=== PATIENT | female | born 1940 | race Asian ===

== ENCOUNTER 2018-11-06 15:55 | Emergency (ER) | payer OTHER ==
[~2018-11-06] VITALS: Ht 160 cm; Wt 65.0 kg
[~2018-11-06 15:55] MED LIST: ALLO100T PO; AMLO5TAB66 PO; ESOM10SU PO; LOSA50TA64 PO; ROSU5TAB PO
[2018-11-06] MEDS ORDERED: ASPIRIN 81 MG CHEWABLE TABLET PO ONE (16:15)
[2018-11-06 16:43] LABS: BASOPHILS % (AUTO) 0.6 % (0.0-2.0); EOSINOPHILS % (AUTO) 3.6 % (1.0-6.0); HEMATOCRIT 35.9 % (36-46); HEMOGLOBIN 12.3 g/dL (12.0-16.0); LYMPHOCYTES # (AUTO) 1.3 K/uL (1.0-4.8); LYMPHOCYTES % (AUTO) 14.5 % (22.0-44.0); MEAN CORPUSCULAR HEMOGLOBIN 31.3 pg (26.0-34.0); MEAN CORPUSCULAR HGB CONC 34.3 G/dL (31.0-37.0); MEAN CORPUSCULAR VOLUME 91 fL (80-100); MONOCYTES # (AUTO) 0.6 K/uL (0.1-1.0); MONOCYTES % (AUTO) 6.3 % (2.0-9.0); NEUTROPHILS # (AUTO) 6.7 K/uL (1.8-7.7); PLATELET COUNT (AUTO) 240 K/uL (150-450); RED BLOOD CELL COUNT(AUTO) 3.93 MIL/uL (4.00-5.20); RED CELL DISTRIBUTION WIDTH 13.8 % (11.5-14.5)
[2018-11-06 16:53] LABS: CALCIUM, TOTAL 8.6 mg/dL (8.8-10.5); CREATININE 2.13 mg/dL (0.60-1.30); POTASSIUM 3.6 mmol/L (3.5-5.1)
[2018-11-06 17:18] LABS: ALBUMIN 3.2 g/dL (3.4-5.0); TOTAL PROTEIN, SERUM 6.8 g/dL (6.4-8.2)
[2018-11-06] MEDS ORDERED: SODIUM CHLORIDE 0.9% 1,000 ML IV ONE (17:45)
[2018-11-06] MEDS ORDERED: ONDANSETRON HCL 4 MG/2 ML VIAL IVP ONE (17:45)
[2018-11-06] MEDS ORDERED: MORPHINE SULFATE 4 MG/ML SYRINGE IVP ONE (17:45)
[2018-11-06 17:55] LABS: APPEARANCE,URINE CLEAR (CLEAR); BILIRUBIN,URINE NEGATIVE (NEGATIVE); GLUCOSE, URINE (UA) NEGATIVE (NEGATIVE); KETONES,URINE NEGATIVE (NEGATIVE); LEUKOCYTE ESTERASE ,URINE SMALL (NEGATIVE); NITRATE,URINE NEGATIVE (NEGATIVE); OCCULT BLOOD,URINE LARGE (NEGATIVE); PH,URINE 7.5 (5.0-8.0); PROTEIN,URINE SEE CONFIRM (NEGATIVE)
[2018-11-06 18:01] LABS: SULFOSALICYLIC ACID,URINE 4+ (Negative)
[2018-11-06 18:04] LABS: BACTERIA,URINE None Seen /HPF (None Seen); SQUAMOUS EPITHELIAL CELL,UR Moderate /LPF (None Seen)
[2018-11-06 21:19] VITALS: BP 134/72
== END 2018-11-06 21:20 | disposition home or self-care (01) ==
LOC: EMS 15:56
DX: R10.13 Epigastric pain (principal); I12.9 Hypertensive chronic kidney disease with stage 1 through stage 4 chronic kidney disease, or unspecified chronic kidney disease; N18.9 Chronic kidney disease, unspecified; R74.0 Nonspecific elevation of levels of transaminase and lactic acid dehydrogenase [LDH]; R31.9 Hematuria, unspecified; I10 Essential (primary) hypertension; E78.00 Pure hypercholesterolemia, unspecified; Z79.899 Other long term (current) drug therapy
CPT/HCPCS: 36415; 71045; 76700; 80053; 81001; 82550; 83690; 83880; 84484; 85025; 87086; 93005; 96374; 96375; 99285; J2270; J2405; J7030

== ENCOUNTER 2024-10-26 04:59 | Emergency (ER) | payer OTHER ==
[~2024-10-26] VITALS: Ht 157.5 cm; Wt 63.6 kg
[~2024-10-26 04:59] MED LIST changes: +LOSA-382 PO; -LOSA50TA64 PO
[2024-10-26 06:46] LABS: BASOPHILS % (AUTO) 0.8 % (0.0-2.0); EOSINOPHILS % (AUTO) 3.4 % (1.0-6.0); HEMATOCRIT 38.5 % (36-46); HEMOGLOBIN 13.2 g/dL (12.0-16.0); LYMPHOCYTES # (AUTO) 1.4 K/uL (1.0-4.8); MEAN CORPUSCULAR HEMOGLOBIN 31.5 pg (26.0-34.0); MEAN CORPUSCULAR HGB CONC 34.2 G/dL (31.0-37.0); MEAN CORPUSCULAR VOLUME 92 fL (80-100); MONOCYTES # (AUTO) 0.4 K/uL (0.1-1.0); MONOCYTES % (AUTO) 5.4 % (2.0-9.0); NEUTROPHILS # (AUTO) 5.1 K/uL (1.8-7.7); NEUTROPHILS % (AUTO) 71.4 % (40.0-70.0); PLATELET COUNT (AUTO) 236 K/uL (150-450); RED BLOOD CELL COUNT(AUTO) 4.18 MIL/uL (4.00-5.20); RED CELL DISTRIBUTION WIDTH 13.8 % (11.5-14.5); WHITE BLOOD COUNT (AUTO) 7.1 K/uL (4.5-11.0)
[2024-10-26 06:50] LABS: CALCIUM, TOTAL 9.4 mg/dL (8.8-10.5); CREATININE 2.47 mg/dL (0.60-1.30)
[2024-10-26 07:02] LABS: ALBUMIN 3.7 g/dL (3.4-5.0); BILIRUBIN,DIRECT 0.2 mg/dL (0.00-0.20); BILIRUBIN,TOTAL 0.6 mg/dL (0.1-1.0); TOTAL PROTEIN, SERUM 8.2 g/dL (6.4-8.2)
[2024-10-26 07:03] LABS: APPEARANCE,URINE CLEAR (CLEAR); BILIRUBIN,URINE NEGATIVE (NEGATIVE); COLOR,URINE COLORLESS (YELLOW); GLUCOSE, URINE (UA) NEGATIVE (NEGATIVE); KETONES,URINE NEGATIVE (NEGATIVE); LEUKOCYTE ESTERASE ,URINE LARGE (NEGATIVE); NITRATE,URINE NEGATIVE (NEGATIVE); OCCULT BLOOD,URINE SMALL (NEGATIVE); PH,URINE 6.5 (5.0-8.0); PROTEIN,URINE 300-600,SEE CONFIRM mg/dL (NEGATIVE); SPECIFIC GRAVITIY, URINE 1.011 (1.003-1.030); UROBILINOGEN,URINE <=1.0 mg/dL (<=1.0)
[2024-10-26 07:41] LABS: SULFOSALICYLIC ACID,URINE 3+ (Negative)
[2024-10-26 07:42] LABS: BACTERIA,URINE Few /HPF (None Seen); RBC,URINE None Seen /HPF (0-2); SQUAMOUS EPITHELIAL CELL,UR Few /LPF (None Seen)
[2024-10-26] MEDS: ACETAMINOPHEN 500 MG TABLET PO ONE (07:58)
[2024-10-26] MEDS: LIDOCAINE 5% TRANSDERMAL PATCH TD ONE (07:58)
[2024-10-26] MEDS: CYCLOBENZAPRINE HCL 10 MG TABLET PO ONE (07:58)
[2024-10-26 10:47] VITALS: TEMP 98.6
[2024-10-26] MEDS ORDERED: CYCL-448 PO (10:48)
[2024-10-26] MEDS ORDERED: DOCU-385 PO (10:48)
[2024-10-26 11:10] VITALS: BP 132/77; PULSE 96; RESP 16; O2SAT 98
== END 2024-10-26 11:16 | disposition home or self-care (01) ==
LOC: EMS 05:06
DX: M54.50 Low back pain, unspecified (principal); K59.00 Constipation, unspecified; I10 Essential (primary) hypertension; E78.00 Pure hypercholesterolemia, unspecified; Z79.899 Other long term (current) drug therapy
CPT/HCPCS: 74176; 80048; 80076; 81001; 81002; 83690; 85025; 99285

== ENCOUNTER 2025-01-22 15:03 | Emergency (ER) | payer OTHER ==
[~2025-01-22] VITALS: Ht 152.4 cm; Wt 54.5 kg
[~2025-01-22 15:03] MED LIST changes: +CYCL-448 PO; +DOCU-385 PO; -ROSU5TAB PO; +ROSU5TAB17 PO
[2025-01-22 15:06] VITALS: TEMP 98
[2025-01-22 15:38] LABS: PLATELET COUNT (AUTO) 228 K/uL (150-450); RED BLOOD CELL COUNT(AUTO) 3.84 MIL/uL (4.00-5.20); RED CELL DISTRIBUTION WIDTH 13.8 % (11.5-14.5); WHITE BLOOD COUNT (AUTO) 5.5 K/uL (4.5-11.0)
[2025-01-22 15:44] LABS: CALCIUM, TOTAL 9.4 mg/dL (8.8-10.5); CREATININE 2.60 mg/dL (0.60-1.30); GLOMERULAR FILTR. RATE CALC 18 mL/min (>60); GLUCOSE,RANDOM 207 mg/dL (70-110); SODIUM SERUM 139 mmol/L (136-145); UREA NITROGEN, BLOOD 36 mg/dL (7-18)
[2025-01-22 15:52] LABS: TROPONIN I-HIGH SENSITIVITY 10 ng/L (<51)
[2025-01-22 16:25] LABS: APPEARANCE,URINE CLEAR (CLEAR); GLUCOSE, URINE (UA) 150-200 mg/dL (NEGATIVE); LEUKOCYTE ESTERASE ,URINE NEGATIVE (NEGATIVE); NITRATE,URINE NEGATIVE (NEGATIVE); OCCULT BLOOD,URINE TRACE (NEGATIVE); SPECIFIC GRAVITIY, URINE 1.013 (1.003-1.030)
[2025-01-22 16:37] LABS: SQUAMOUS EPITHELIAL CELL,UR Few /LPF (None Seen)
[2025-01-22 16:38] LABS: SULFOSALICYLIC ACID,URINE 1+ (Negative)
[2025-01-22] MEDS ORDERED: MONT-40 PO (18:04)
[2025-01-22] MEDS ORDERED: MOME17SP11 NASAL (18:04)
[2025-01-22] MEDS ORDERED: FEXO-403 PO (18:04)
[2025-01-22] MEDS ORDERED: ESCI-8 PO (18:04)
[2025-01-22] MEDS ORDERED: AMLO-257 PO (18:06)
[2025-01-22] MEDS ORDERED: ROSU10TA72 PO (18:06)
[2025-01-22] MEDS ORDERED: FLUT1BLS3 IH (18:06)
[2025-01-22] MEDS: SODIUM CHLORIDE 0.9% 1,000 ML IV ONE (18:06)
[2025-01-22 18:35] LABS: TROPONIN I-HIGH SENSITIVITY 10 ng/L (<51)
[2025-01-22] MEDS: MORPHINE SULFATE 2 MG/ML SYRINGE IVP ONE (21:14)
[2025-01-22] MEDS ORDERED: TRAM50TA5 PO (22:48)
[2025-01-22 23:10] VITALS: BP 144/77; PULSE 85; RESP 18; O2SAT 99
[2025-01-23] MEDS ORDERED: TRAM50TA5 PO (10:11)
== END 2025-01-22 23:18 | disposition home or self-care (01) ==
LOC: EMS 15:03
DX: K59.00 Constipation, unspecified (principal); N20.9 Urinary calculus, unspecified; N28.9 Disorder of kidney and ureter, unspecified; E78.00 Pure hypercholesterolemia, unspecified; I10 Essential (primary) hypertension; M10.9 Gout, unspecified; Z90.5 Acquired absence of kidney; Z79.51 Long term (current) use of inhaled steroids; Z79.899 Other long term (current) drug therapy
CPT/HCPCS: 99285; 74176; 96361; 96374; 80048; 81001; 83690; 84484; 85025; 36415; 74018; 93005; J2270; J7030; 81002